=== PATIENT | female | born 1950 | race African-American/Black ===

== ENCOUNTER 2019-07-10 12:38 | Emergency (ER) | payer SELFPAY ==
[~2019-07-10] VITALS: Ht 172.7 cm; Wt 77.0 kg
[2019-07-10 12:41] VITALS: BP 158/97
== END 2019-07-10 13:38 | disposition left against medical advice (07) ==
LOC: ER 12:58
DX: R41.82 Altered mental status, unspecified (principal); R56.9 Unspecified convulsions; Z91.14 Patient's other noncompliance with medication regimen
CPT/HCPCS: 99283